=== PATIENT | female | born 1975 | race Caucasian/White ===

== ENCOUNTER 2018-05-26 11:02 | Emergency (ER) | payer MEDICAID ==
[~2018-05-26] VITALS: Ht 160 cm; Wt 69.0 kg
[2018-05-26 11:05] VITALS: BP 183/128
[2018-05-26] MEDS ORDERED: dexamethasone sod phosphate 10mg/ml inj PO STA (11:44)
[2018-05-26] MEDS ORDERED: guaiFENesin/DM 10ml UD oral syrup PO ONE (11:45)
[2018-05-26] MEDS ORDERED: ROBCFL PO (11:50)
[2018-05-26] MEDS ORDERED: AZIT250T2 PO (11:50)
== END 2018-05-26 12:10 | disposition home or self-care (01) ==
LOC: ER 11:03
DX: J70.5 Respiratory conditions due to smoke inhalation (principal); J40 Bronchitis, not specified as acute or chronic; I10 Essential (primary) hypertension; G89.29 Other chronic pain; F12.90 Cannabis use, unspecified, uncomplicated; Z90.710 Acquired absence of both cervix and uterus; Z88.8 Allergy status to other drugs, medicaments and biological substances; Z79.2 Long term (current) use of antibiotics
CPT/HCPCS: 99283; J1100

== ENCOUNTER 2021-06-08 06:14 | Day surgery (SDC) | payer MEDICARE, MEDICAID ==
[2021-06-01 15:22] LABS: BASOPHILS # (AUTO) 0.1 X10'3 (0-0.2); BASOPHILS % (AUTO) 1.4 % (0-1); EOSINOPHILS # (AUTO) 0.1 X10'3 (0-0.9); EOSINOPHILS % (AUTO) 1.7 % (0-6); LYMPHOCYTES % (AUTO) 26.6 % (21-51); MEAN CORPUSCULAR HEMOGLOBIN 29.9 PG (27.0-31.0); MEAN CORPUSCULAR HGB CONC 33.2 g/dL (33.0-36.5); MEAN CORPUSCULAR VOLUME 89.9 FL (78-98); MEAN PLATELET VOLUME 8.2 FL (7.4-10.4); MONOCYTES # (AUTO) 0.4 X10'3 (0-0.9); MONOCYTES % (AUTO) 5.6 % (2-12); NEUTROPHILS % (AUTO) 64.7 % (42-75); PRE OP HEMATOCRIT 43.7 % (35.0-45.0); PRE OP HEMOGLOBIN 14.5 g/dL (12.0-16.0); PRE OP PLATELET COUNT 487 X10'3 (140-440); RED BLOOD COUNT 4.86 X10'6 (4.20-5.60); RED CELL DISTRIBUTION WIDTH 12.1 % (11.5-14.5)
[2021-06-01 15:28] LABS: PRE OP PROTIME 10.3 SECONDS (9.0-12.0)
[2021-06-01 15:32] LABS: ALBUMIN 3.5 G/DL (3.4-5.0); ALBUMIN/GLOBULIN RATIO 0.8 (1.1-1.5); ALKALINE PHOSPHATASE 95 IU/L (46-116); BLOOD UREA NITROGEN 7 MG/DL (7-18); BUN/CREATININE RATIO 8.9 (6.6-38.0); CALCIUM 9.1 MG/DL (8.5-10.1); CHLORIDE 103 MMOL/L (99-107); CREATININE 0.79 MG/DL (0.40-0.90); PRE OP ALT 38 U/L (30-65); PRE OP ANION GAP 8 (8-16); PRE OP AST 23 U/L (10-37); PRE OP BILIRUB, TOTAL 0.3 MG/DL (0.0-1.0); PRE OP GLUCOSE 107 MG/DL (70-104); PRE OP POTASSIUM 3.7 MMOL/L (3.4-5.1); PRE OP SODIUM 140 MMOL/L (135-145); TOTAL CARBON DIOXIDE 28.8 MMOL/L (24-32); TOTAL PROTEIN 7.7 G/DL (6.4-8.2); eGFR 79 ML/MIN
[~2021-06-08] VITALS: Ht 162.6 cm; Wt 68.7 kg
[2021-06-08] VITALS (9 sets, daily range): BP systolic 132–164; BP diastolic 85–106
[~2021-06-08 06:14] MED LIST: BACL10TA2 PO; GABA800T11 PO; LOSA100T57 PO; SOUR1000 PO; TRAM50TA2 PO; diazepam 5mg tablet PO ONE; famotidine 20mg tablet PO ONE; oxymetazoline 15 ML nasal spray NS ONE; ringers solution, lacted 1,000 ML IV SCH
[2021-06-08] MEDS ORDERED: BUPIVAcaine/PF 2.5 mg/ml (0.25%) 30ml vial ONE (06:48)
[2021-06-08] MEDS ORDERED: bacitracin 15gm ointment TP ONE (06:49)
[2021-06-08] MEDS ORDERED: LIDOCAINE 1%/EPI 1:100,000 inj. 10 ML multi-dose vial ONE (06:49)
[2021-06-08] MEDS ORDERED: oxymetazoline 15 ML nasal spray NS ONE (06:49)
[2021-06-08] MEDS ORDERED: cocaine 4% topical solution 4ml bottle ONE (06:49)
[2021-06-08] MEDS ORDERED: mupirocin 2% ointment 22GM ONE (07:17)
[2021-06-08] MEDS ORDERED: proCHLORperazine 10 MG/2 ml inj IV PRN (08:15)
[2021-06-08] MEDS ORDERED: acetaminophen 1,000mg/100ml IV 100 ML IV PRN (08:15)
[2021-06-08] MEDS ORDERED: hydrALAZINE 20mg/ml inj. IV PRN (08:15)
[2021-06-08] MEDS ORDERED: ondansetron/PF 4mg/2ml inj IV PRN (08:15)
[2021-06-08] MEDS ORDERED: meperidine/PF 25mg/ml syringe IV PRN (08:15)
[2021-06-08] MEDS ORDERED: labetalol 20mg/4ml (5mg/ml) syringe IV PRN (08:15)
[2021-06-08] MEDS ORDERED: morphine 4 MG/ML inj SYRINge IV PRN (08:15)
[2021-06-08] MEDS ORDERED: morphine 2 MG/ML inj. syringe IV PRN (08:15)
[2021-06-08] MEDS ORDERED: HYDROmorphone/PF 0.2 MG/ML SYRINGE IV PRN ×2 (08:15)
[2021-06-08] MEDS ORDERED: ringers solution, lacted 1,000 ML IV SCH (08:15)
[2021-06-08] MEDS ORDERED: midazolam 1 mg/ML 2ml injection ONE (08:19)
[2021-06-08] MEDS ORDERED: fentaNYL/PF 50MCG/1 ML 2ML syringe ONE (08:19)
[2021-06-08] MEDS ORDERED: 0.9 % SODIUM CHLORIDE 10 ML VIAL ONE ×2 (09:13)
[2021-06-08] MEDS ORDERED: ePHEDrine 50MG/ML INJ. ONE (09:13)
[2021-06-08] MEDS ORDERED: phenylephrine 10mg/ml inj. ONE (09:13)
[2021-06-08] MEDS ORDERED: propofol inj 20 ML IV ONE (09:14)
[2021-06-08] MEDS ORDERED: LIDOcaine 2% (20mg/ml) 5ml vial ONE (09:14)
[2021-06-08] MEDS ORDERED: ondansetron/PF 4mg/2ml inj ONE (09:14)
[2021-06-08] MEDS ORDERED: dexamethasone sod phosphate 4mg/ml inj. ONE (09:14)
--- NOTE | 2021-06-08 09:30 | NUR ---
Received from OR via , accompanied by Anesthesiologist DR STEPHENS and report given by Anesthesiolgist.AWAKENS TO VOICE. VITALS STABLE. DRESSINGS DI. ARNOLDO PAIN.
[2021-06-08] MEDS ORDERED: oxymetazoline 15 ML nasal spray NS SCH (09:43)
[2021-06-08] MEDS ORDERED: salt irrigation nasal spray 45 ML SPRAY NS PRN (09:45)
[2021-06-08] MEDS ORDERED: oxyCODONE/APAP 10/325mg tablet PO ONE (10:15)
--- NOTE | 2021-06-08 11:10 | NUR ---
AWAKE AND ORIENTED. VITALS STABLE. DRESSING DI. STATES PAIN IMPROVING. HOME WITH HER DAUGHTER AT THIS TIME.
== END 2021-06-08 11:10 | disposition home or self-care (01) ==
LOC: PAS 06:14
PROVIDERS: ATTEND Otolaryngology
DX: J34.2 Deviated nasal septum (principal); J34.3 Hypertrophy of nasal turbinates; J34.89 Other specified disorders of nose and nasal sinuses; J45.909 Unspecified asthma, uncomplicated; I10 Essential (primary) hypertension; G43.909 Migraine, unspecified, not intractable, without status migrainosus; Z20.822 Contact with and (suspected) exposure to COVID-19; Z90.710 Acquired absence of both cervix and uterus; Z98.890 Other specified postprocedural states; Z79.899 Other long term (current) drug therapy; Z88.8 Allergy status to other drugs, medicaments and biological substances; Z79.01 Long term (current) use of anticoagulants
CPT/HCPCS: 30140; 30520; 31240; 36415; 80053; 82948; 85025; 85576; 85610; 85730; 87635; 93005; A6402; C9250; C9803; J0131; J1100; J1170; J2175; J2250; J2270; J2370; J2405; J2704; J3010; J3490; J7030; J7120; U0003; U0005; Z7506; Z7508; Z7512; 88300; A4618; A7000

== ENCOUNTER 2022-02-18 05:08 | Emergency (ER) | payer MEDICARE, MEDICAID ==
[~2022-02-18] VITALS: Ht 160 cm; Wt 76.0 kg
[~2022-02-18 05:08] MED LIST changes: -diazepam 5mg tablet PO ONE; -famotidine 20mg tablet PO ONE; -oxymetazoline 15 ML nasal spray NS ONE; -ringers solution, lacted 1,000 ML IV SCH
[2022-02-18] MEDS ORDERED: OXYC-150 PO (05:34)
[2022-02-18] MEDS ORDERED: orphenadrine citrate 60mg/2ml inj. IM ONE (06:20)
[2022-02-18] MEDS ORDERED: MSC15T PO (06:40)
[2022-02-18] MEDS ORDERED: ORPH100T2 PO (06:40)
[2022-02-18] MEDS ORDERED: morphine ER 15mg tablet PO SCH (08:00)
[2022-02-18 08:23] VITALS: BP 170/98
[2022-02-18] MEDS ORDERED: MORP15TA60 PO (08:50)
== END 2022-02-18 08:27 | disposition home or self-care (01) ==
LOC: ER 05:09
DX: G89.28 Other chronic postprocedural pain (principal); M54.2 Cervicalgia; I10 Essential (primary) hypertension; J45.909 Unspecified asthma, uncomplicated; F12.90 Cannabis use, unspecified, uncomplicated; Z88.1 Allergy status to other antibiotic agents; Z88.5 Allergy status to narcotic agent
CPT/HCPCS: 96372; 99285; J2360

== ENCOUNTER 2022-08-04 11:20 | Emergency (ER) | payer MEDICARE, MEDICAID ==
[~2022-08-04] VITALS: Ht 160 cm; Wt 70.5 kg
[~2022-08-04 11:20] MED LIST changes: +MORP15TA60 PO; +ORPH100T2 PO; +OXYC-150 PO
[2022-08-04 11:55] VITALS: BP 147/106
[2022-08-04 13:28] LABS: BASOPHILS # (AUTO) 0.1 X10'3 (0-0.2); BASOPHILS % (AUTO) 0.8 % (0-1); EOSINOPHILS # (AUTO) 0.6 X10'3 (0-0.9); EOSINOPHILS % (AUTO) 5.4 % (0-6); HEMATOCRIT 42.1 % (35.0-45.0); LYMPHOCYTES # (AUTO) 1.8 X10'3 (1.1-4.8); LYMPHOCYTES % (AUTO) 16.9 % (21-51); MEAN CORPUSCULAR HEMOGLOBIN 30.2 PG (27.0-31.0); MEAN CORPUSCULAR HGB CONC 33.4 g/dL (33.0-36.5); MEAN CORPUSCULAR VOLUME 90.4 FL (78-98); MEAN PLATELET VOLUME 7.6 FL (7.4-10.4); MONOCYTES # (AUTO) 0.7 X10'3 (0-0.9); MONOCYTES % (AUTO) 6.3 % (2-12); NEUTROPHILS # (AUTO) 7.5 X10'3 (1.8-7.7); NEUTROPHILS % (AUTO) 70.6 % (42-75); PLATELET COUNT 493 X10'3 (140-440); RED BLOOD COUNT 4.65 X10'6 (4.20-5.60); WHITE BLOOD COUNT 10.6 X10'3 (4.5-11.0)
[2022-08-04 13:39] LABS: D-DIMER 0.28 MG/L FEU (0-0.50)
[2022-08-04 14:01] LABS: ALANINE AMINOTRANSFERASE 28 U/L (12-78); ALBUMIN 3.8 G/DL (3.4-5.0); ALBUMIN/GLOBULIN RATIO 0.8 (1.1-1.5); ALKALINE PHOSPHATASE 102 IU/L (46-116); ANION GAP 11 (8-16); ASPARTATE AMINO TRANSFERASE 19 U/L (10-37); BILIRUBIN,TOTAL 0.2 MG/DL (0.1-1.0); BLOOD UREA NITROGEN 10 MG/DL (7-18); CALCIUM 9.6 MG/DL (8.5-10.1); CHLORIDE 103 MMOL/L (99-107); CREATININE 0.83 MG/DL (0.40-0.90); GLUCOSE 110 MG/DL (70-104); POTASSIUM 3.6 MMOL/L (3.5-5.1); SODIUM 140 MMOL/L (135-145); TOTAL CARBON DIOXIDE 26.1 MMOL/L (24-32); TOTAL PROTEIN 8.5 G/DL (6.4-8.2); eGFR 74 ML/MIN
[2022-08-04 14:12] LABS: MAGNESIUM 2.5 MG/DL (1.5-2.4)
== END 2022-08-04 14:36 | disposition home or self-care (01) ==
LOC: ER 11:21
DX: R07.9 Chest pain, unspecified (principal); J02.9 Acute pharyngitis, unspecified; R07.0 Pain in throat; J45.909 Unspecified asthma, uncomplicated; I10 Essential (primary) hypertension; G89.29 Other chronic pain; F12.10 Cannabis abuse, uncomplicated; Z88.5 Allergy status to narcotic agent; Z88.8 Allergy status to other drugs, medicaments and biological substances
CPT/HCPCS: 36415; 71045; 80053; 83735; 83880; 84145; 84443; 84484; 85025; 85379; 93005; 99285